=== PATIENT | male | born 1970 | race Two or more races ===

== ENCOUNTER 2021-10-03 07:15 | Day surgery (SDC) | payer BC ==
[~2021-10-03 07:15] MED LIST: Lactated Ringers 1,000 ML IV SCH
[2021-10-03] MEDS ORDERED: Propofol 200 MG/20 ML SDV ONE (07:29)
[2021-10-03] MEDS ORDERED: Midazolam 1 MG/ML 2 ML SDV ONE (07:29)
[2021-10-03] MEDS ORDERED: fentaNYL 100 MCG/2 ML SDV ONE (08:26)
[2021-10-03] MEDS ORDERED: Lidocaine 2% 5 ML SDV ONE (08:27)
[2021-10-03 09:29] VITALS: BP 92/64; PULSE 66
== END 2021-10-03 09:37 | disposition home or self-care (01) ==
LOC: MW.SDS 07:15
PROVIDERS: ATTEND Surgery
DX: K29.50 Unspecified chronic gastritis without bleeding (principal); B96.81 Helicobacter pylori [H. pylori] as the cause of diseases classified elsewhere; E78.00 Pure hypercholesterolemia, unspecified; Z98.890 Other specified postprocedural states; Z90.49 Acquired absence of other specified parts of digestive tract; Z79.899 Other long term (current) drug therapy
CPT/HCPCS: 43239; J2250; J2704; J3010; J7120; 00731